=== PATIENT | female | born 1970 | race Caucasian/White ===

== ENCOUNTER → 2017-10-31 | Outpatient (CLI) | payer BC ==
[2017-10-31 11:42] VITALS: BP 110/72; PULSE 70; TEMP 98; BMI 24.7
--- NOTE | 2017-10-31 12:34 | P.HPOB ---
History of Present Illness H&P Date: 10/31/17 Chief Complaint: The patient is here for her routine gynecologic exam. This is a 47-year-old G0 with an LMP of 10/13/2017. The patient does not use anything to prevent and states it would be okay if she did get . She has a history of infertility, endometriosis and a Y-shaped uterus. She has been experiencing abdominal fullness on and off for the last 6 months. She has also been treated for several UTIs in the past, but recently urine cultures have been negative. She is now seeing a urologist for this. She is otherwise without complaints. Review of Systems Weight has been stable. She denies respiratory or cardiac problems. G.I.: her bowel movements have become slightly less frequent. She has had abdominal fullness as in HPI. Past Medical History Past Medical History: Asthma, Cancer (Melanoma removed from the back in 2008.) Additional Past Medical History / Comment(s): Seasonal allergies. 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 She had an infertility workup in 2010. She has no history of STDs. History of Any Multi-Drug Resistant Organisms: None Reported Additional Past Surgical History / Comment(s): SKIN CANCER REMOVED FROM BACK 2008 Past Anesthesia/Blood Transfusion Reactions: No Reported Reaction Past Psychological History: No Psychological Hx Reported Smoking Status: Never smoker Past Alcohol Use History: None Reported, Occasional (One per week) Past Drug Use History: None Reported Additional History: She has been since 2013. 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 - Past Family History Sister(s) Family Medical History: Cancer (Uterus), Diabetes Mellitus Mother Family Medical History: Osteoarthritis (OA) Additional Family Medical History / Comment(s): Maternal grandmother had breast cancer. Father Family Medical History: No Reported History Additional Family Medical History / Comment(s): Paternal grandmother had breast cancer. Medications and Allergies Home Medications Medication Instructions Recorded Confirmed Type Albuterol Inhaler [Ventolin Hfa 1 - 2 puff INHALATION RT-Q6H PRN 10/31/17 History Inhaler] Allergies Allergy/AdvReac Type Severity Reaction Status Date / Time nitrofurantoin Allergy Rash/Hives Unverified 10/31/17 11:36 [From Macrobid] Sulfa (Sulfonamide Allergy Unknown Verified 10/31/17 11:35 Antibiotics) Exam Vital Signs Temp Pulse BP 10/31/17 11:36 98.0 F 70 110/72 Intake and Output 10/30/17 10/31/17 10/31/17 22:59 06:59 14:59 Other: Weight 61.235 kg Height 5'2", BMI 24.7. This is a well-developed well-nourished white female who is alert and oriented times 3 in no acute distress. HEENT: Within normal limits. NECK: Supple without mass or thyromegaly. CHEST AND LUNGS: Clear to auscultation. HEART: Regular rate and rhythm. BREASTS: Are without mass or discharge. AXILLARY EXAM: Negative for adenopathy. BACK: Negative for CVA tenderness. ABDOMEN: Soft, nontender, without palpable masses. PELVIC EXAM: Normal external genitalia. Cervix and vagina appear normal. There is no unusual discharge. There is no evidence of prolapse. The uterus is mid to anterior, approximately 10-12 week size, firm and slightly irregular consistent with a fibroid uterus. There are no palpable adnexal masses or tenderness. RECTAL EXAM: rectovaginal exam is negative for mass or tenderness and is negative for occult blood. EXTREMITIES: Nontender. IMPRESSION: 1. 47 year old premenopausal female with uterine enlargement approximately 10 to 12 week size. This most likely represents a multi-fibroid uterus. 2. Abdominal fullness. This likely represents symptoms from her enlarged uterus. 3. History of primary infertility. PLAN: 1. Pap smear was performed. 2. Self breast awareness was discussed. 3. I have recommended screening mammogram which has been declined by the patient. She will call she changes her mind. She is concerned about radiation exposure with mammography. She understands that the radiation is considered low dose. 4. Osteoporosis prevention was discussed. 5. Pelvic ultrasound will be scheduled. 6. We have had a long discussion regarding uterine fibroids. If her uterus is causing significant symptoms, or if rapidly enlarging, consider referral for possible hysterectomy. 7. She will return in one year and PRN.
--- NOTE | 2017-10-31 12:50 | XR ---
EXAMINATION TYPE: XR elbow limited RT DATE OF EXAM: 10/31/2017 CLINICAL HISTORY: Posterior elbow pain for 6 months. TECHNIQUE: Frontal and lateral images of the right elbow are obtained. COMPARISON: None FINDINGS: There is no acute fracture/dislocation evident in the right elbow. No abnormal fat pad si gns are seen. The overlying soft tissue appears unremarkable. IMPRESSION: Unremarkable study.
== END ==
LOC: WWCWWP 11:15
PROVIDERS: ATTEND Obstetrics & Gynecology
DX: M25.521 Pain in right elbow (principal)

== ENCOUNTER → 2017-11-10 | Outpatient (CLI) | payer BC ==
--- NOTE | 2017-11-10 13:20 | US ---
EXAMINATION TYPE: US pelvis complete transvag DATE OF EXAM: 11/10/2017 COMPARISON: NONE CLINICAL HISTORY: N85.2 ENLARGED UTERUS/ R68.89 ABN PELVIC EXAM. TECHNIQUE: . Transabdominal sonographic images of the pelvis were acquired. Transvaginal sonographi c images were medically necessary to better assess the following anatomy: Uterus and ovaries Date of LMP: 10/13/2017 EXAM MEASUREMENTS: Uterus: 10.7 x 8.0 x 9.2 cm Endometrial Stripe: 0.7 cm lower uterine segment Right Ovary: 3.8 x 2.2 x 3.2 cm Left Ovary: 2.8 x 1.8 x 3.1 cm 1. Uterus: Anteverted. Nabothian cyst visualized within cervix. Bulky and heterogeneous uterus. Prob able fibroid visualized measuring 7.4 x 8.8 x 6.3 cm 2. Endometrium: Difficult and limited evaluation due to probable fibroid 3. Right Ovary: Complex cystic area visualized measuring 2.3 x 1.7 x 1.7 cm 4. Left Ovary: Cystic area visualized measuring 2.3 x 1.0 x 1.9 cm 5. Bilateral Adnexa: wnl 6. Posterior cul-de-sac: wnl Bulky heterogeneous uterus with large fibroid anteriorly displacing endometrium. No free fluid is see n in pelvic cul-de-sac. Endometrium only minimally imaged inferiorly. Both ovaries are identified with scattered peripheral follicles and/or thin-walled cyst/cystic lesion s. Some dependent debris is seen in 2.3 cm cystic lesion right ovary. Probable hemorrhagic cyst. IMPRESSION: Large intrauterine fibroid causing enlarged uterus and likely abnormal physical exam.
== END | disposition home or self-care (01) ==
LOC: RADUSWWP 10:22
PROVIDERS: ATTEND Obstetrics & Gynecology
DX: D25.9 Leiomyoma of uterus, unspecified (principal)
CPT/HCPCS: 76830; 76856